=== PATIENT | male | born 1945 | race Caucasian/White ===

== ENCOUNTER → 2017-10-10 07:32 | Outpatient (CLI) | payer MEDICARE, BC ==
[~2017-10-10 07:32] MED LIST: CARDURA1 MG PO; FUROSEMIDE40 MG PO; LIPITOR40 MG PO; LOSARTAN POTASS25 MG PO; PROAIR HFA8.5 GM INH; PROZAC20 MG PO; REMERON15 MG/UDTA PO; SPIRIVA RESPIMAT4 G1 INH
[2017-10-10 08:42] VITALS: BMI 23.8
[2017-10-10 08:49] LABS: BASOPHILS 0.3 % (0-2); EOSINOPHILS 3.3 % (0-7); HEMOGLOBIN 10.9 g/dL (13.5-17.5); IMMATURE GRANULOCYTES 1.6 % (0-5); LYMPHOCYTES 15.2 % (15-50); MCH 29.4 pg (26.0-34.0); MCHC 31.1 g/dL (31.0-37.0); MCV 94.3 fL (80.0-100.0); MEAN PLATELET VOLUME 10.6 fL (7.4-10.4); MONOCYTES 8.9 % (2-11); NEUTROPHILS 70.7 % (40-80); PLATELET COUNT 189 10x3/uL (130-400); RBC 3.71 10x6/uL (4.20-6.10); RDW 18.2 % (11.5-14.5)
[2017-10-10 09:01] LABS: ALBUMIN 3.6 g/dL (3.4-5.0); ANION GAP 13.3 mmol/L (8-16); BILIRUBIN - TOTAL 0.38 mg/dL (0.2-1.3); CALCIUM 9.5 mg/dL (8.5-10.1); CARBON DIOXIDE 25.2 mmol/L (21.0-32.0); CREATININE - SERUM 1.4 mg/dL (0.6-1.3); POTASSIUM - SERUM 4.5 mmol/L (3.5-5.1); PROTEIN - SERUM 6.9 g/dL (6.4-8.2)
[2017-10-10 09:12] LABS: APTT 29.1 SECONDS (22.8-39.4); INR 0.97 (0.85-1.17); PROTIME 12.5 SECONDS (11.6-15.0)
== END | disposition home or self-care (01) ==
LOC: D.SP 10-04 08:00 → D.OPS 10-04 10:00 → D.SP 10-04 10:00 → D.OPS 07:32
PROVIDERS: General Practice
DX: C34.11 Malignant neoplasm of upper lobe, right bronchus or lung (principal); E27.9 Disorder of adrenal gland, unspecified